=== PATIENT | male | born 1945 | race Caucasian/White ===

== ENCOUNTER 2017-11-13 10:06 | Emergency (ER) | payer OTHER ==
[~2017-11-13] VITALS: Ht 172.7 cm; Wt 90.7 kg
[2017-11-13] MEDS ORDERED: LISINOPRIL10 M1 PO (10:14)
[2017-11-13] MEDS ORDERED: METOPROLOL TART50 M1 PO (10:14)
[2017-11-13] MEDS ORDERED: NAPROSYN500 MG PO (10:31)
== END 2017-11-13 11:08 | disposition home or self-care (01) ==
LOC: ED 10:06
DX: M72.2 Plantar fascial fibromatosis (principal); R03.0 Elevated blood-pressure reading, without diagnosis of hypertension; Z91.041 Radiographic dye allergy status; Z79.899 Other long term (current) drug therapy

== ENCOUNTER 2023-02-06 18:15 | Emergency (ER) | payer MEDICARE ==
[~2023-02-06] VITALS: Ht 170.2 cm; Wt 81.6 kg
[~2023-02-06 18:15] MED LIST: LISINOPRIL10 M1 PO; METOPROLOL TART50 M1 PO; NAPROSYN500 MG PO
[2023-02-06] MEDS ORDERED: CLINDAMYCIN HC300 MG PO (20:16)
== END 2023-02-06 20:17 | disposition home or self-care (01) ==
LOC: ED 18:15
DX: L03.012 Cellulitis of left finger (principal); Z91.041 Radiographic dye allergy status

== ENCOUNTER 2024-07-06 21:35 | Emergency (ER) | payer MEDICARE ==
[~2024-07-06] VITALS: Ht 172.7 cm; Wt 79.4 kg
[~2024-07-06 21:35] MED LIST changes: +CLINDAMYCIN HC300 MG PO
[2024-07-07] MEDS ORDERED: TRAMADOL HCL50 MG PO (01:24)
== END 2024-07-07 01:28 | disposition home or self-care (01) ==
LOC: ED 21:35
DX: S83.91XA Sprain of unspecified site of right knee, initial encounter (principal); I10 Essential (primary) hypertension; E78.5 Hyperlipidemia, unspecified; Z91.041 Radiographic dye allergy status; X58.XXXA Exposure to other specified factors, initial encounter; Y93.01 Activity, walking, marching and hiking; Y92.096 Garden or yard of other non-institutional residence as the place of occurrence of the external cause; Y99.8 Other external cause status